=== PATIENT | female | born 1990 | race Caucasian/White ===

== ENCOUNTER 2021-09-19 21:38 | Emergency (ER) | payer OTHER ==
[~2021-09-19] VITALS: Ht 165.1 cm; Wt 63.0 kg
[~2021-09-19 21:38] MED LIST: PRENATAL CAPLE1 EACH PO; REGLAN10 MG PO
== END 2021-09-19 23:49 | disposition home or self-care (01) ==
LOC: ED 21:38
DX: O20.0 Threatened abortion (principal); Z88.8 Allergy status to other drugs, medicaments and biological substances; Z91.040 Latex allergy status; Z3A.01 Less than 8 weeks gestation of pregnancy
CPT/HCPCS: 36415; 76801; 76817; 80048; 81001; 84702; 85025; 86900; 86901; 99284-25